=== PATIENT | female | born 1960 | race Caucasian/White ===

== ENCOUNTER 2016-12-30 12:40 | Emergency (ER) | payer SELFPAY ==
[~2016-12-30] VITALS: Ht 165.1 cm; Wt 65.9 kg
[~2016-12-30 12:40] MED LIST: PREDNISONE20 MG PO; VENTOLIN HFA18 GM IH; ZITHROMAX Z-PA250 MG PO
[2016-12-30 13:29] LABS: BASOPHIL COUNT 0.1 K/uL (0-0.1); EOSINOPHIL (%) 4.5 % (0-5); EOSINOPHIL COUNT 0.4 K/uL (0-0.3); IMMATURE GRANULOCYTE (%) 0.3 % (0.0-0.7); IMMATURE GRANULOCYTE COUNT 0.2 K/uL; LYMPHOCYTE COUNT 2.8 K/uL (1.0-2.8); MCH 32.2 PG (29.0-34.0); MCHC 33.7 G/DL (30.0-36.0); MCV 95.6 FL (83-99); MEAN PLAT.VOLUME 9.8 uM^3 (9.5-12.4); MONOCYTE (%) 10.3 % (3-12); MONOCYTE COUNT 0.8 K/uL (0-0.8); NEUTROPHIL (%) 48.2 % (45-76); NEUTROPHIL COUNT 3.7 K/uL (1.8-6.4); PLATELET COUNT 299 K/uL (156-360); RBC DIS.WIDTH-CV 14.4 % (11.8-14.6); RBC DIS.WIDTH-SD 48.1 % (39-53); WHITE BLOOD COUNT 7.7 K/uL (4.1-10.2)
[2016-12-30 13:38] LABS: CHLORIDE 102 mEq/L (99-109); POTASSIUM 4.2 mEq/L (3.7-5.4); SODIUM 138 mEq/L (136-147)
[2016-12-30 13:40] LABS: GLUCOSE 96 mg/dL (70-99)
[2016-12-30 13:41] LABS: ANION GAP 13 MEQ/L (2-14)
[2016-12-30 13:44] LABS: GFR ESTIMATE (CALCULATED) > 59 mL/min/; UREA NITROGEN (BUN) 11 mg/dL (9-23)
[2016-12-30 13:51] LABS: TROP-I INTERPRETATION NEGATIVE; TROPONIN-I < 0.01 ng/mL (0.0-0.30)
[2016-12-30] MEDS ORDERED: AZITHROMYCIN500 M1 PO (15:01)
[2016-12-30] MEDS ORDERED: PREDNISONE50 MG PO (15:01)
[2016-12-30] MEDS ORDERED: VENTOLIN HFA18 GM IH (15:01)
[2016-12-30 15:15] VITALS: BP 113/83
== END 2016-12-30 15:24 | disposition home or self-care (01) ==
LOC: EME 12:40
PROVIDERS: Emergency Medicine
DX: J44.1 Chronic obstructive pulmonary disease with (acute) exacerbation (principal)
CPT/HCPCS: 71010; 80048; 84484; 85025; 93005; 94640; 99281; 99285; J0456; J2930